=== PATIENT | male | born 1955 | race Two or more races ===

== ENCOUNTER 2019-08-03 13:07 | Emergency (ER) | payer SELFPAY ==
[~2019-08-03] VITALS: Ht 172.7 cm; Wt 68.0 kg
--- NOTE | 2019-08-03 13:10 | NUR ---
ED Nurse Note: pt brought in by [address] for etoh intoxication. Placed on bed, VSS, on RA. Pt is AOx3 per EMS, appears to be consistently drowsy. Will continue to monitor.
[2019-08-03 13:47] VITALS: BP 136/72
--- NOTE | 2019-08-03 15:06 | Emergency Room Report ---
History of Present Illness General Chief Complaint: Alcohol Intoxication Source: Patient, EMS Present Illness HPI Patient presents from paramedics reporting that the patient was found sleeping on the ground Upon arrival the patient resting comfortably is arousable with physical stimuli and does report Taking alcohol intake Initially patient has difficulty providing full history and requesting to sleep Did deny chest pain or shortness of breath Patient also again reported drinking heavier alcohol than usual Denies any focal weakness Allergies: Coded Allergies: No Known Allergies (Unverified , 08/03/19) COVID-19 Screening Contact w/high risk pt: No Recent Travel to affected area: No Experienced COVID-19 symptoms?: No Patient History Limited by: medical condition Past Medical History: see triage record Reviewed Nursing Documentation: PMH: Agreed; PSxH: Agreed Nursing Documentation-PMH Past Medical History: No Stated History Review of Systems All Other Systems: limited - Other than the ones mentioned in the history of present illness all others are reviewed however they do stay limited due to the patient's mental status Physical Exam Vital Signs Date Time Temp Pulse Resp B/P (MAP) Pulse Ox O2 Delivery O2 Flow Rate FiO2 08/03/19 13:03 98.4 98 20 136/72 (93) 100 Room Air Sp02 EP Interpretation: reviewed, normal General Appearance: no apparent distress Head: normocephalic, atraumatic Eyes: bilateral eye PERRL, bilateral eye EOMI ENT: hearing grossly normal, EOM grossly intact Neck: supple Respiratory: lungs clear, no respiratory distress, no retraction Cardiovascular #1: regular rate, rhythm Gastrointestinal: non tender, soft Genitourinary: normal inspection Musculoskeletal: normal inspection Neurologic: alert, oriented x3 Skin: cyanosis Lymphatic: no adenopathy Medical Decision Making Diagnostic Impression: Primary Impression: Alcohol abuse ER Course Multiple differentials including but not limited to electrolyte abnormality, covid 19 infection, neurological ,neuro surgical differentials entertained Upon arrival the patient was speaking clearly Initial work-up was not initiated And after further observation patient has become more awake and oriented alert and requesting food and to go home Patient has repeat neurological exam and remains appropriate and significantly improved therefore further testing was not performed and patient disposition for close outpatient follow-up Rhythm Strip Diag. Results EP Interpretation: yes Rate: 66 Rhythm: NSR, no PVC's, no ectopy Chest X-Ray Diagnostic Results Chest X-Ray Diagnostic Results : Chest X-Ray Ordered: Yes # of Views/Limited/Complete: 1 View Indication: Other - ams EP Interpretation: Yes Interpretation: no consolidation, no effusion, no pneumothorax Impression: No acute disease Electronically Signed by: Jane Hernadez DO Last Vital Signs Date Time Temp Pulse Resp B/P (MAP) Pulse Ox O2 Delivery O2 Flow Rate FiO2 08/03/19 13:47 98.4 20 136/72 100 Room Air 08/03/19 13:47 98 Status: improved Disposition: HOME, SELF-CARE Condition: Improved Additional Instructions: Patient is provided with the discharge instructions notified to follow up with primary doctor in the next 2-3 days otherwise return to the er with any worsening symptoms. Please note that this report is being documented using [employer] technology. This can lead to erroneous entry secondary to incorrect interpretation by the dictating instrument. Jane Hernadez DO Aug 03, 2019 15:06
--- NOTE | 2019-08-03 16:05 | Diagnostic Imaging Report ---
Indication: Chest Technique: One view of the chest Comparison: none Findings: Inspiration is suboptimal. There is equivocal mild central interstitial prominence. No focal airspace consolidation. Pleural spaces are clear. Heart size is upper limits of normal. Impression: Equivocal mild increased interstitial markings, probably exaggerated by low lung volumes, nonspecific if real. No focal infiltrates.
[2019-08-03 16:16] VITALS: BP 128/70
--- NOTE | 2019-08-03 16:16 | NUR ---
ER DISCHARGE NOTE: Patient is cleared to be discharged per ERMD, pt is aox4, on room air, with stable vital signs. pt was given dc and prescription instructions, pt was able to verbalize understanding, pt id band removed. pt is able to ambulate with steady gait. pt took all belongings.
== END 2019-08-03 16:16 | disposition home or self-care (01) ==
LOC: EDBD 13:07 → EMR 13:40
DX: F10.10 Alcohol abuse, uncomplicated (principal)
CPT/HCPCS: 71045; 99283